=== PATIENT | female | born 1980 | race Hispanic/Latino ===

== ENCOUNTER 2017-02-11 05:35 | Day surgery (SDC) | payer OTHER ==
[~2017-02-11] VITALS: Ht 157.5 cm; Wt 60.3 kg
[2017-02-11 06:02] VITALS: BP 96/58
[2017-02-11 09:17] VITALS: BP 97/45
[2017-02-11 10:07] VITALS: BP 89/50
[2017-02-11 10:18] VITALS: BP 100/47
== END 2017-02-11 10:32 | disposition home or self-care (01) ==
LOC: SDC 05:35
DX: N84.0 Polyp of corpus uteri (principal); N92.1 Excessive and frequent menstruation with irregular cycle; Z83.3 Family history of diabetes mellitus; F17.290 Nicotine dependence, other tobacco product, uncomplicated
CPT/HCPCS: 84702; 88305; J1100; J1885; J2250; J2405; J3010

== ENCOUNTER 2017-11-08 09:36 | Emergency (ER) | payer OTHER ==
[~2017-11-08] VITALS: Ht 157.5 cm; Wt 60.4 kg
[2017-11-08 09:39] VITALS: BP 110/65
== END 2017-11-08 12:36 | disposition home or self-care (01) ==
LOC: EME 09:36
DX: H00.014 Hordeolum externum left upper eyelid (principal)
CPT/HCPCS: 99281; 99284

== ENCOUNTER 2018-04-13 07:58 | Day surgery (SDC) | payer OTHER ==
[~2018-04-13] VITALS: Ht 157.5 cm; Wt 58.9 kg
[2018-04-13 08:20] VITALS: BP 109/56
[2018-04-13 12:00] VITALS: BP 100/55
[2018-04-13 13:00] VITALS: BP 96/52
== END 2018-04-13 13:27 | disposition home or self-care (01) ==
LOC: SDC 07:58
PROC: 0UPD7HZ Removal of Contraceptive Device from Uterus and Cervix, Via Natural or Artificial Opening (ICD-10-PCS; principal; 2018-04-13)
PROC: 0U5B8ZZ Destruction of Endometrium, Via Natural or Artificial Opening Endoscopic (ICD-10-PCS; principal; 2018-04-13)
PROC: 0UDB8ZX Extraction of Endometrium, Via Natural or Artificial Opening Endoscopic, Diagnostic (ICD-10-PCS; principal; 2018-04-13)
DX: N92.1 Excessive and frequent menstruation with irregular cycle (principal); N88.8 Other specified noninflammatory disorders of cervix uteri; A63.0 Anogenital (venereal) warts; F17.200 Nicotine dependence, unspecified, uncomplicated
CPT/HCPCS: 88305; J0131; J0690; J1100; J1170; J2250; J2405; J3010